=== PATIENT | male | born 1995 | race Two or more races ===

== ENCOUNTER 2017-12-24 17:22 | Emergency (ER) | payer OTHER ==
[~2017-12-24] VITALS: Ht 175.3 cm; Wt 49.9 kg
[2017-12-24] MEDS ORDERED: TDAP DIPH,PERTUSS,TET VAC/PF 0.5 ML DISP.SYRIN IM ONE ×2 (17:45→18:06)
[2017-12-24] MEDS ORDERED: HYDROCODONE/APAP 10-325 MG TABLET ONE (18:56)
[2017-12-24] MEDS ORDERED: HYDROCODONE/APAP 10-325 MG TABLET PO ONE (19:00)
[2017-12-24] MEDS ORDERED: ONDANSETRON ODT 4 MG TAB.RAPDIS SL ONE (19:00)
[2017-12-24] MEDS ORDERED: ONDANSETRON ODT 4 MG TAB.RAPDIS ONE (19:09)
--- NOTE | 2017-12-24 19:23 | NUR ---
Patient discharged to home in stable conditon. Written and verbal after care instructions given. Patient verbalizes understanding of instructions.PT WITH FAMILY MEMBERS,PT NOT DRIVING.
[2017-12-24 19:25] VITALS: BP 119/81
== END 2017-12-24 19:26 | disposition home or self-care (01) ==
LOC: ER 17:25
DX: S00.83XA Contusion of other part of head, initial encounter (principal); S20.219A Contusion of unspecified front wall of thorax, initial encounter; S93.602A Unspecified sprain of left foot, initial encounter; F12.10 Cannabis abuse, uncomplicated; V43.52XA Car driver injured in collision with other type car in traffic accident, initial encounter; Y92.410 Unspecified street and highway as the place of occurrence of the external cause; Y93.89 Activity, other specified; Y99.8 Other external cause status
CPT/HCPCS: 70450; 71045; 72125; 73630; 90715; A4663; Q0162